=== PATIENT | male | born 1970 | race Two or more races ===

== ENCOUNTER 2019-05-04 20:17 | Emergency (ER) | payer SELFPAY ==
[~2019-05-04] VITALS: Ht 180.3 cm; Wt 77.0 kg
[2019-05-04] MEDS ORDERED: HYDROCODONE/ACETAMINOPHEN 5/325MG TABLET PO ONE (22:45)
[2019-05-05 00:10] VITALS: BP 131/79
== END 2019-05-05 00:29 | disposition home or self-care (01) ==
LOC: ER 20:17
DX: S00.83XA Contusion of other part of head, initial encounter (principal); Y08.89XA Assault by other specified means, initial encounter; Y93.89 Activity, other specified; Y92.89 Other specified places as the place of occurrence of the external cause; Y99.8 Other external cause status
CPT/HCPCS: 70486; 71045; 99285